=== PATIENT | male | born 1975 | race Two or more races ===

== ENCOUNTER 2022-07-02 12:12 | Emergency (ER) | payer OTHER ==
[~2022-07-02] VITALS: Ht 177.8 cm; Wt 79.4 kg
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
[2022-07-02] MEDS ORDERED: IBUPROFEN 600 MG TABLET PO ONE (13:00)
[2022-07-02] MEDS ORDERED: ACETAMINOPHEN ES 500 MG TABLET PO ONE (13:00)
[2022-07-02] MEDS ORDERED: IBUPROFEN 600 MG TABLET ONE (13:18)
[2022-07-02] MEDS ORDERED: ACETAMINOPHEN ES 500 MG TABLET ONE (13:18)
[2022-07-02] MEDS ORDERED: IBUP-1957 PO (14:13)
--- NOTE | 2022-07-02 16:32 | NUR ---
CRUTCH PROVIDED REQUESTED BY PT.
--- NOTE | 2022-07-02 16:34 | NUR ---
Patient discharged to home in stable condition. Written and verbal after care instructions given. Patient verbalizes understanding of instruction.
[2022-07-02 16:36] VITALS: BP 124/94
== END 2022-07-02 16:00 | disposition home or self-care (01) ==
LOC: ER 12:14
DX: S13.4XXA Sprain of ligaments of cervical spine, initial encounter (principal); S33.5XXA Sprain of ligaments of lumbar spine, initial encounter; S80.812A Abrasion, left lower leg, initial encounter; V49.9XXA Car occupant (driver) (passenger) injured in unspecified traffic accident, initial encounter; Y93.89 Activity, other specified; Y92.89 Other specified places as the place of occurrence of the external cause; Y99.8 Other external cause status
CPT/HCPCS: 99284; 72125; 72131; A6403